=== PATIENT | male | born 1970 | race Caucasian/White ===

== ENCOUNTER → 2025-07-01 | Outpatient (CLI) | payer BC ==
[~2025-07-01] MED LIST: DEXILANT PO; ESOM20; HYDACE10B PO; IBUP800 PO; LISI5 PO; METR500 PO; OMEP20ER; OMEP20ER PO; OXYACE5T PO; PROM25 PO; TETR250 PO
[2025-07-01 13:24] LABS: Source, Urine Voided
[2025-07-01 13:30] LABS: White Blood Cells, Urine 0-2 /hpf (0-5)
[2025-07-01 20:06] LABS: Chlamydia Trachomatis Urine NOT DETECTED (NOT DETECT); Neisseria Gonorrhoea Urine NOT DETECTED (NOT DETECT)
== END ==
LOC: LAB 13:22 → LAB SHORT 13:22
PROVIDERS: Physician Assistant Medical
DX: R30.0 Dysuria (principal)
CPT/HCPCS: 81015; 87086; 87491; 87591